=== PATIENT | female | born 1960 | race African-American/Black ===

== ENCOUNTER 2024-11-22 11:13 | Emergency (ER) | payer MEDICARE, BC ==
[~2024-11-22] VITALS: Ht 162.6 cm; Wt 190.0 kg
[2024-11-22 11:22] VITALS: O2SAT 98
[2024-11-22 15:27] VITALS: BP 146/76; PULSE 65; RESP 16; TEMP 36.6; O2SAT 100
== END 2024-11-22 15:30 | disposition home or self-care (01) ==
LOC: ER 11:13
DX: S46.911A Strain of unspecified muscle, fascia and tendon at shoulder and upper arm level, right arm, initial encounter (principal); S50.01XA Contusion of right elbow, initial encounter; I10 Essential (primary) hypertension; Z88.0 Allergy status to penicillin; W01.0XXA Fall on same level from slipping, tripping and stumbling without subsequent striking against object, initial encounter; Y93.89 Activity, other specified; Y92.89 Other specified places as the place of occurrence of the external cause; Y99.8 Other external cause status
CPT/HCPCS: 73030; 73080; 73110; 99284